=== PATIENT | female | born 1965 | race Two or more races ===

== ENCOUNTER 2020-08-14 07:30 | Inpatient (IN) | payer OTHER ==
[~2020-08-14] VITALS: Ht 157.5 cm; Wt 77.1 kg
== END 2020-08-22 12:26 | disposition home or self-care (01) | DRG 743 ==
LOC: OB/GYN 08-20 04:00 → O/R 08-20 08:08 → SURH 08-20 20:39
PROVIDERS: ADMIT Obstetrics & Gynecology Gynecologic Oncology; ATTEND Obstetrics & Gynecology Gynecologic Oncology
PROC: 0UT24ZZ Resection of Bilateral Ovaries, Percutaneous Endoscopic Approach (ICD-10-PCS; 2020-08-20)
PROC: 0UT74ZZ Resection of Bilateral Fallopian Tubes, Percutaneous Endoscopic Approach (ICD-10-PCS; 2020-08-20)
PROC: 0UT94ZZ Resection of Uterus, Percutaneous Endoscopic Approach (ICD-10-PCS; principal; 2020-08-20 04:00)
DX: D25.0 Submucous leiomyoma of uterus (principal); N80.0 Endometriosis of uterus; N83.299 Other ovarian cyst, unspecified side; N87.9 Dysplasia of cervix uteri, unspecified